=== PATIENT | male | born 1955 | race Caucasian/White ===

== ENCOUNTER 2020-11-17 11:26 | Emergency (ER) | payer OTHER ==
[~2020-11-17] VITALS: Ht 180.3 cm; Wt 77.1 kg
[2020-11-17 12:45] LABS: ABSOLUTE NEUTROPHILS 6.1 thou/uL (1.4-8.2); BASOPHILS 0.6 % (0.0-2.0); EOSINOPHILS 1.1 % (0.0-3.0); HEMATOCRIT 41.9 % (42.0-52.0); HEMOGLOBIN 14.3 gm/dL (14.0-18.0); MCH 31.5 pg (26.0-34.0); MCHC 34.2 g/dL (28.0-37.0); MCV 92.2 fL (80.0-100.0); MONOCYTES 6.7 % (1.0-8.0); PLATELET COUNT 328 thou/uL (150-400); POLYS 74.6 % (36.0-66.0); RBC 4.55 mil/uL (4.50-6.00); RDW 13.4 % (10.5-14.5); WBC 8.2 thou/uL (4.0-11.0)
[2020-11-17 13:14] LABS: ANION GAP 10 mmol/L (7-16); BUN 15 mg/dL (7-18); CALCIUM 8.9 mg/dL (8.5-10.1); CHLORIDE 99 mmol/L (98-107); CO2 26 mmol/L (21-32); CREATININE 0.9 mg/dL (0.7-1.3); GLUCOSE 91 mg/dL (74-106); POTASSIUM 4.6 mmol/L (3.5-5.1); SODIUM 135 mmol/L (136-145)
[2020-11-17 13:18] LABS: ALBUMIN 3.5 g/dL (3.4-5.0); DIRECT BILIRUBIN < 0.1 mg/dL (<0.1-0.2); SGOT 26 U/L (15-37); SGPT 17 U/L (16-63); TOTAL BILIRUBIN 0.5 mg/dL (0.2-1.0); TOTAL PROTEIN 7.4 g/dL (6.4-8.2); TROPONIN-I <0.06 ng/mL (<0.06)
[2020-11-17 15:22] LABS: INR 0.95; PROTIME 10.4 Seconds (10.5-12.1)
[2020-11-17 15:40] VITALS: BP 164/76
--- NOTE | 2020-11-18 07:25 | EKG ---
[place] [address] [email or web address] [place] [employer] [address] ELECTROCARDIOGRAM REPORT Name: NOBLE SETH [facility] [id number] Admission: 11/17/20 Attend Phys: Discharge: 11/17/20 Date of : 51 Report #: [id number] [facility] ED Test Date: 2020-11-17 Test Time: 11:45:07 Pat Name: NOBLE SETH Department: Room: Gender: Material Manager: : 1955 Requested By: Prudence Christensen Order Number: [id number] MD: John Prieto Measurements Intervals [place] Rate: 91 P: 79 NC: 124 QRS: 74 QRSD: 80 T: 49 QT: 344 QTc: 424 Interpretive Statements Sinus rhythm Baseline wander in lead(s) V3,V5 No previous ECG available for comparison Electronically Signed On 11-18-2020 7:25:01 CDT by John Prieto [email or web address] <ELECTRONICALLY SIGNED> By: John Prieto MD, [facility] 11/18/20 0725 1145 1145 John Prieto MD, FACC /EPI
== END 2020-11-17 15:42 | disposition home or self-care (01) ==
LOC: ER 11:26
PROVIDERS: Emergency Medicine
DX: R91.8 Other nonspecific abnormal finding of lung field (principal); E27.9 Disorder of adrenal gland, unspecified; Z88.8 Allergy status to other drugs, medicaments and biological substances